=== PATIENT | male | born 1940 | race Caucasian/White ===

== ENCOUNTER 2023-11-11 08:32 | Day surgery (SDC) | payer MEDICARE, BC ==
[2023-11-05 14:08] LABS: BASOPHILS % (AUTO) 0.6 % (0-1); EOSINOPHILS % (AUTO) 0.6 % (0-6); LYMPHOCYTES # (AUTO) 1.4 X10'3 (1.1-4.8); LYMPHOCYTES % (AUTO) 18.8 % (21-51); MEAN CORPUSCULAR HEMOGLOBIN 31.3 PG (27.0-31.0); MEAN CORPUSCULAR HGB CONC 33.7 g/dL (33.0-36.5); MEAN CORPUSCULAR VOLUME 92.7 FL (78-98); MONOCYTES # (AUTO) 0.6 X10'3 (0-0.9); MONOCYTES % (AUTO) 8.8 % (2-12); NEUTROPHILS # (AUTO) 5.2 X10'3 (1.8-7.7); NEUTROPHILS % (AUTO) 71.2 % (42-75); PRE OP HEMATOCRIT 48.4 % (42.0-52.0); PRE OP HEMOGLOBIN 16.3 g/dL (14.0-17.9); PRE OP PLATELET COUNT 207 X10'3 (140-440); PRE OP WHITE BLOOD COUNT 7.2 10'3 (4.8-10.8); RED BLOOD COUNT 5.22 X10'6 (4.70-6.10); RED CELL DISTRIBUTION WIDTH 13.5 % (11.5-14.5)
[2023-11-05 14:30] LABS: ALBUMIN 3.5 G/DL (3.4-5.0); ALBUMIN/GLOBULIN RATIO 1.1 (1.1-1.5); ALKALINE PHOSPHATASE 64 IU/L (46-116); BLOOD UREA NITROGEN 18 MG/DL (7-18); BUN/CREATININE RATIO 18.4 (10.0-20.0); CALCIUM 8.8 MG/DL (8.5-10.1); CHLORIDE 107 MMOL/L (99-107); CREATININE 0.98 MG/DL (0.60-1.10); PRE OP ALT 41 U/L (30-65); PRE OP ANION GAP 2 (8-16); PRE OP AST 26 U/L (10-37); PRE OP BILIRUB, TOTAL 0.5 MG/DL (0.0-1.0); PRE OP GLUCOSE 110 MG/DL (70-104); PRE OP SODIUM 140 MMOL/L (135-145); TOTAL CARBON DIOXIDE 31.1 MMOL/L (24-32); TOTAL PROTEIN 6.8 G/DL (6.4-8.2); eGFR 73 ML/MIN
[2023-11-05 14:36] LABS: PRE OP POTASSIUM 3.3 MMOL/L (3.4-5.1)
[2023-11-11] VITALS (14 sets, daily range): BP systolic 98–146; BP diastolic 48–87; PULSE 76–102; RESP 10–16; TEMP 97.6; O2SAT 92–99
[~2023-11-11] VITALS: Ht 182.9 cm; Wt 88.4 kg
[~2023-11-11 08:32] MED LIST: ALLO300T8 PO; AMLO5TAB16 PO; CITA10TA14 PO; DAPA10TA PO; DOCUMENT DATE & TIME OF BETA-BLOCKER PO ONE; EZET-61 PO; FLO0.4C PO; INSU100V11 SQ; INSU300I SQ; PANT40TA54 PO; SEMA7TAB2 PO; VALS160T30 PO; cefazolin 2gm/D5W 100mL 100 ML IV ONE; famotidine 20mg tablet PO ONE; ringers solution, lacted 1,000 ML IV SCH
[2023-11-11] MEDS ORDERED: CITA-311 PO (09:56)
[2023-11-11] MEDS ORDERED: LIDOcaine 1% (10mg/ml)w/preservative inj. 20ml MDV ONE (10:11)
[2023-11-11] MEDS ORDERED: BUPIVAcaine/PF 2.5mg/ml (0.25%) 10ml vial ONE (10:12)
[2023-11-11] MEDS ORDERED: fentaNYL/PF 50MCG/1 ML 2ML syringe ONE (11:19)
[2023-11-11] MEDS ORDERED: propofol inj 20 ML IV ONE (11:20)
[2023-11-11] MEDS ORDERED: midazolam 1 mg/ML 2ml injection ONE (11:20)
[2023-11-11] MEDS ORDERED: rocuronium 10mg/ml inj IV ONE (11:20)
[2023-11-11] MEDS ORDERED: LIDOcaine 1% (10mg/ml)w/preservative inj. 20ml MDV SQ ONE (12:03)
[2023-11-11] MEDS ORDERED: BUPIVAcaine 2.5mg/ml inj 50ml vial (contains preservative) SQ ONE (12:04)
[2023-11-11] MEDS ORDERED: dexamethasone sod phosphate 4mg/ml inj. ONE (12:17)
[2023-11-11] MEDS ORDERED: ondansetron/PF 4mg/2ml inj ONE (12:17)
[2023-11-11] MEDS ORDERED: glycopyrrolate 0.2mg/ml inj ONE (12:18)
[2023-11-11] MEDS ORDERED: proCHLORperazine 10 MG/2 ml inj IV PRN (12:35)
[2023-11-11] MEDS ORDERED: morphine 2 MG/ML inj. syringe IV PRN (12:35)
[2023-11-11] MEDS ORDERED: meperidine/PF 25mg/ml syringe IV PRN ×3 (12:35)
[2023-11-11] MEDS ORDERED: ringers solution, lacted 1,000 ML IV SCH (12:35)
[2023-11-11] MEDS ORDERED: morphine 4 MG/ML inj SYRINge IV PRN (12:35)
[2023-11-11] MEDS ORDERED: ondansetron/PF 4mg/2ml inj IV PRN (12:35)
[2023-11-11] MEDS ORDERED: HYDROcodone/acetaminophen 5mg/325mg tablet PO PRN (12:45)
== END 2023-11-11 14:42 | disposition home or self-care (01) ==
LOC: PAS 08:32
PROVIDERS: ATTEND Surgery
DX: K40.91 Unilateral inguinal hernia, without obstruction or gangrene, recurrent (principal); I10 Essential (primary) hypertension; E11.9 Type 2 diabetes mellitus without complications; E78.5 Hyperlipidemia, unspecified; K21.9 Gastro-esophageal reflux disease without esophagitis; N40.0 Benign prostatic hyperplasia without lower urinary tract symptoms; F41.9 Anxiety disorder, unspecified; F32.A Depression, unspecified; M10.9 Gout, unspecified; Z98.890 Other specified postprocedural states
CPT/HCPCS: 36415; 49651; 80053; 82948; 85025; 93005; C1781; J0690; J1100; J2175; J2250; J2405; J2704; J3010; J3490; J7030; J7120; Z7506; Z7508; Z7512; A4215; A4618

== ENCOUNTER 2024-10-29 15:23 | Emergency (ER) | payer MEDICARE, BC ==
[~2024-10-29] VITALS: Ht 182.9 cm; Wt 91.2 kg
[~2024-10-29 15:23] MED LIST changes: -DOCUMENT DATE & TIME OF BETA-BLOCKER PO ONE; -cefazolin 2gm/D5W 100mL 100 ML IV ONE; -famotidine 20mg tablet PO ONE; -ringers solution, lacted 1,000 ML IV SCH
[2024-10-29 15:41] VITALS: BP 135/74; PULSE 85; RESP 16; TEMP 98.3; O2SAT 95
== END 2024-10-29 19:18 | disposition home or self-care (01) ==
LOC: ER 15:23
DX: M25.512 Pain in left shoulder (principal)
CPT/HCPCS: 73030; 99283